=== PATIENT | female | born 1955 | race Caucasian/White ===

== ENCOUNTER 2024-09-27 12:52 | Emergency (ER) | payer OTHER ==
[~2024-09-27] VITALS: Ht 165.1 cm; Wt 62.1 kg
[2024-09-27] MEDS: morPHINE 2 MG SYG IVP ONE (14:59)
[2024-09-27] MEDS: ondanSETRON 4MG INJ IVP ONE (14:59)
[2024-09-27] MEDS: ketOROlac 15MG/ML VIAL (15MG/ML) IV ONE (14:59)
[2024-09-27 15:33] VITALS: BP 111/47; PULSE 83; RESP 17; TEMP 98; O2SAT 96
[2024-09-27] MEDS ORDERED: KETO10TA2 PO (16:00)
--- NOTE | 2024-09-27 16:01 | ERN ---
General Chief Complaint: Low Back Pain/Injury Stated Complaint: BACK PAIN, LEG PAIN Time Seen by MD: 13:08 Time Seen by Midlevel: 13:08 Source: patient History of Present Illness Initial Comments Patient is a 69-year-old female with a past medical history of chronic low back pain and sciatica presenting to the emergency department with low back pain. She does report a previous herniated disc surgery. Today she reports pain from her lower back that radiates down her left leg. No other symptoms reported at this time. Patient states the medication she usually takes her pain is not currently working. Allergies: Coded Allergies: Penicillins (Unverified Allergy, Unknown, 09/27/24) Home Meds Active Scripts Ketorolac Tromethamine (Ketorolac Tromethamine) 10 Mg Tablet, 1 TAB PO BID for pain for 5 Days, #10 TAB 0 Refills Prov:KENZIE EKENAN 09/27/24 Past Medical History Past Medical History: Diabetes-Type II, Fibromyalgia, High Cholesterol Medical History Other: LUNG CA, BONE CA Past Surgical History: Tonsillectomy, Cholecystectomy Surgical History Other: HERNIATED DISC SX, NECK SX ROS Dictation CONSTITUTIONAL: Negative except for HPI HEAD/FACE: Negative except for HPI EENT: Negative except for HPI RESPIRATORY: Negative except for HPI GASTROINTESTINAL/ABDOMINAL: Negative except for HPI GENITOURINARY: Negative except for HPI MUSCULOSKELETAL: Negative except for HPI INTEGUMENTARY: Negative except for HPI NEUROLOGICAL/PSYCH: Negative except for HPI HEMATOLOGIC/LYMPHATIC: Negative except for HPI All Systems Negative, Except as noted above. 13 point review of systems assessed and all negative except for above. Physical Exam Physical Exam Dictation Vital Signs reviewed General Appearance: Alert, oriented x 3, no acute distress, well developed, nourished. Head and Face: non-traumatic. Eyes: PERRL, pink conjunctivas, eyelid no trauma, anterior chamber with arcus senilis. Ears: Pinnas intact and no signs of trauma or erythema ear canals clear and no discharge TM no erythema Nose: No discharge, no bleeding. Oropharynx: Mouth normal, tongue pink, pharynx clear,no erythema, tonsils no exudates, no abscesses noted, mucous membrane moist Neck: Supple, non-tender, no thyromegaly, no masses, no JVD, no bruits Breast:Deferred Chest:No tenderness, no crepitus, no paradoxical movement, no retractions Lungs:Clear, well-ventilated, symmetric, no rales, no wheezing, no rhonchi, no stridor, good breath sounds bilaterally Heart: Regular rate, regular rhythm, no murmur, no gallops Vascular: no peripheral edema, Abdomen: Soft, positive bowel sounds, nondistended, no guarding, nontender, no rebound, no masses no hepatomegaly, no splenomegaly, no Guevara's sign, no hernias. Rectal: Deferred Genital: Deferred Neurological: Normal speech, motor function intact, sensory function intact Musculoskeletal: Neck nontender, full range of motion, back nontender, full range of motion, Extremities: nontender, full range of motion Skin: Color pink, dry, no turgor, no rash, no lacerations, no abrasions, no contusions. Lymphatic: Deferred MDM MDM: Differential diagnosis: Sciatica, low back strain, chronic back pain There are no social concerns with this patient. Prescription drug management Prescriptions will include: ketorolac Medical management and examination interpretation discussions were had by me with other qualified healthcare professionals as indicated for the patient's care. ED Course Orders Procedure Category Date Status Time Ketorolac PHA 09/27/24 Complete Tromethamine 15mg/Ml 13:30 Morphine 2mg Syg PHA 09/27/24 Complete (Morphine 2mg Syg) 13:30 Ondansetron 4mg Inj PHA 09/27/24 Complete (Zofran 4mg Inj) 13:30 Current Medications Medications (Trade) Dose Ordered Sig/Dilma Route PRN Reason Start Time Stop Time Status Last Admin Dose Admin Ketorolac Tromethamine (toRADol) 15 mg ONCE ONCE IV 09/27/24 13:30 09/27/24 13:31 DC 09/27/24 14:59 Morphine Sulfate (morPHINE 2MG SYG) 2 mg ONCE ONCE IVP 09/27/24 13:30 09/27/24 13:31 DC 09/27/24 14:59 Ondansetron HCl (zoFRAN 4MG INJ) 4 mg ONCE ONCE IVP 09/27/24 13:30 09/27/24 13:31 DC 09/27/24 14:59 Vital Signs Date Time Temp Pulse Resp B/P (MAP) Pulse Ox O2 Delivery O2 Flow Rate FiO2 09/27/24 15:33 98.1 83 17 111/47 96 Room Air* 0 21 09/27/24 13:13 98.2 97 16 98 0 DX & DISP Disposition: Discharge Departure Impression: Primary Impression: Sciatica, left side Condition: Stable Scripts Ketorolac Tromethamine (Ketorolac Tromethamine) 10 Mg Tablet 1 TAB PO BID for pain for 5 Days, #10 TAB 0 Refills Prov: KENZIE KEENAN 09/27/24 Referrals: SELF,REFERRAL (PCP) I have reviewed the case, and I agree with, Diagnosis and Plan I performed the substantive portion of the visit. I have reviewed and personally made and approve the management plan that is documented in the note by myself or the YADIRA. I acknowledge for responsibility for the patient's management plan. KENZIE KEENAN Sep 27, 2024 16:00
== END 2024-09-27 16:33 | disposition home or self-care (01) ==
LOC: EDH 12:52
DX: M54.42 Lumbago with sciatica, left side (principal); E11.9 Type 2 diabetes mellitus without complications; E78.00 Pure hypercholesterolemia, unspecified; Z88.0 Allergy status to penicillin; Z90.49 Acquired absence of other specified parts of digestive tract; Z90.89 Acquired absence of other organs
CPT/HCPCS: 99284; 96374; 96375; J2270; J2405; J1885